=== PATIENT | female | born 1955 | race Caucasian/White ===

== ENCOUNTER 2016-06-09 12:12 | Emergency (ER) | payer SELFPAY ==
[~2016-06-09] VITALS: Ht 162.6 cm; Wt 81.6 kg
[2016-06-09 12:16] VITALS: BP_SYST 136
[2016-06-09 14:43] VITALS: BP_SYST 127
== END 2016-06-09 14:43 | disposition home or self-care (01) ==
LOC: SED 12:12
DX: S62.521A Displaced fracture of distal phalanx of right thumb, initial encounter for closed fracture (principal); Z88.5 Allergy status to narcotic agent; X58.XXXA Exposure to other specified factors, initial encounter; Y93.89 Activity, other specified; Y99.8 Other external cause status; Y92.89 Other specified places as the place of occurrence of the external cause
CPT/HCPCS: 99284

== ENCOUNTER 2016-06-30 20:48 | Emergency (ER) | payer SELFPAY ==
[~2016-06-30] VITALS: Ht 154.9 cm; Wt 99.8 kg
[2016-06-30 20:48] VITALS: BP_SYST 128
[2016-06-30 21:58] VITALS: BP_SYST 122
== END 2016-06-30 21:58 | disposition home or self-care (01) ==
LOC: SED 20:48
DX: H60.92 Unspecified otitis externa, left ear (principal); Z88.5 Allergy status to narcotic agent
CPT/HCPCS: 99283

== ENCOUNTER 2016-11-07 14:15 | Emergency (ER) | payer MEDICAID ==
[~2016-11-07] VITALS: Ht 157.5 cm; Wt 98.0 kg
[2016-11-07 14:20] VITALS: BP_SYST 128
--- NOTE | 2016-11-07 14:23 | NUR ---
Pt to bed 6
--- NOTE | 2016-11-07 14:30 | NUR ---
Received pt [id number]. Pt states she is here for right sided facial pain x 1 week. No s/s cardiac/resp distress noted. Will continue to monitor.
--- NOTE | 2016-11-07 14:40 | NUR ---
Dr. Coto at bedside for evaluation
[2016-11-07 14:56] VITALS: BP_SYST 128
--- NOTE | 2016-11-07 14:56 | NUR ---
Patient given written and verbal discharge instructions and verbalizes understanding. ER MD discussed with patient the results and treatment provided. Patient in stable condition. ID arm band removed. Rx of z-zoran, tylenol given. Patient educated on pain management and to follow up with PMD. Pain Scale 3/10. Opportunity for questions provided and answered.
== END 2016-11-07 14:56 | disposition home or self-care (01) ==
LOC: SED 14:15
DX: J06.9 Acute upper respiratory infection, unspecified (principal); Z88.5 Allergy status to narcotic agent
CPT/HCPCS: 99283

== ENCOUNTER 2017-02-19 12:19 | Emergency (ER) | payer MEDICAID ==
[~2017-02-19] VITALS: Ht 157.5 cm; Wt 95.3 kg
[2017-02-19 12:51] VITALS: BP_SYST 110
[2017-02-19 15:09] VITALS: BP_SYST 111
== END 2017-02-19 15:09 | disposition home or self-care (01) ==
LOC: SED 12:19
DX: J06.9 Acute upper respiratory infection, unspecified (principal); B34.9 Viral infection, unspecified; E11.9 Type 2 diabetes mellitus without complications; I10 Essential (primary) hypertension; Z98.51 Tubal ligation status; Z88.5 Allergy status to narcotic agent; Z95.9 Presence of cardiac and vascular implant and graft, unspecified
CPT/HCPCS: 71010; 99283

== ENCOUNTER 2017-06-19 22:31 | Emergency (ER) | payer MEDICAID ==
[~2017-06-19] VITALS: Ht 162.6 cm; Wt 102.1 kg
[2017-06-19 22:36] VITALS: BP_SYST 147
[2017-06-20 00:06] VITALS: BP_SYST 131
== END 2017-06-20 00:06 | disposition home or self-care (01) ==
LOC: SED 22:31
DX: L03.031 Cellulitis of right toe (principal); E11.9 Type 2 diabetes mellitus without complications; I10 Essential (primary) hypertension; Z88.5 Allergy status to narcotic agent
CPT/HCPCS: 99283

== ENCOUNTER 2017-07-22 17:30 | Emergency (ER) | payer MEDICAID ==
[~2017-07-22] VITALS: Ht 162.6 cm; Wt 104.3 kg
[2017-07-22 17:30] VITALS: BP_SYST 142
[2017-07-22] MEDS ORDERED: ACETAMINOPHEN/CODEINE 300 MG-30 MG TABLET PO ONE (19:00)
[2017-07-22 20:11] VITALS: BP_SYST 144
== END 2017-07-22 20:08 | disposition home or self-care (01) ==
LOC: SED 17:30
DX: L02.818 Cutaneous abscess of other sites (principal); K08.89 Other specified disorders of teeth and supporting structures; E11.9 Type 2 diabetes mellitus without complications; I10 Essential (primary) hypertension; Z88.5 Allergy status to narcotic agent
CPT/HCPCS: 99283

== ENCOUNTER 2017-07-26 19:38 | Emergency (ER) | payer MEDICAID ==
[~2017-07-26] VITALS: Ht 165.1 cm; Wt 102.1 kg
[2017-07-26 19:51] VITALS: BP_SYST 117
[2017-07-26] MEDS ORDERED: KETOROLAC TROMETHAMINE 60 MG/2 ML VIAL IM ONE (20:45)
[2017-07-26 21:05] VITALS: BP_SYST 123
== END 2017-07-26 21:05 | disposition home or self-care (01) ==
LOC: SED 19:38
DX: S39.012A Strain of muscle, fascia and tendon of lower back, initial encounter (principal); I10 Essential (primary) hypertension; E11.9 Type 2 diabetes mellitus without complications; Z88.5 Allergy status to narcotic agent; Z95.5 Presence of coronary angioplasty implant and graft; X58.XXXA Exposure to other specified factors, initial encounter; Y93.89 Activity, other specified; Y92.89 Other specified places as the place of occurrence of the external cause; Y99.8 Other external cause status
CPT/HCPCS: 96372; 99283; J1885

== ENCOUNTER 2017-09-08 17:36 | Emergency (ER) | payer MEDICAID ==
[~2017-09-08] VITALS: Ht 160 cm; Wt 99.8 kg
[2017-09-08 17:50] VITALS: BP_SYST 161
[2017-09-08 18:25] VITALS: BP_SYST 154
== END 2017-09-08 18:25 | disposition home or self-care (01) ==
LOC: SED 17:36
DX: J02.8 Acute pharyngitis due to other specified organisms (principal); B96.89 Other specified bacterial agents as the cause of diseases classified elsewhere; E11.9 Type 2 diabetes mellitus without complications; I10 Essential (primary) hypertension; F03.90 Unspecified dementia, unspecified severity, without behavioral disturbance, psychotic disturbance, mood disturbance, and anxiety; Z88.5 Allergy status to narcotic agent; Z86.79 Personal history of other diseases of the circulatory system; Z95.1 Presence of aortocoronary bypass graft
CPT/HCPCS: 99283